=== PATIENT | male | born 1960 | race Caucasian/White ===

== ENCOUNTER 2017-05-31 23:56 | Emergency (ER) | payer OTHER ==
[2017-06-01 00:02] VITALS: BP 170/97; PULSE 68; RESP 18; TEMP 97.9; O2SAT 97
--- NOTE | 2017-06-01 00:23 | EDPHY ---
H & P Stated Complaint: finger injury Time Seen by Provider: 06/01/17 00:18 HPI/ROS: CHIEF COMPLAINT: Left little finger pain HISTORY OF PRESENT ILLNESS: The patient is a 56-year-old healthy man who fell while trying to hang a picture. He fell to the side and hit his hand on the counter. He states that his left little finger was dislocated it and he self relocated it. This happened just prior to arrival. He denies other injuries or complaints. REVIEW OF SYSTEMS: Constitutional: denies: chills, fever, recent illness, recent injury EENTM: denies: blurred vision, double vision, nose congestion Respiratory: denies: cough, shortness of breath Cardiac: denies: chest pain, irregular heart rate, lightheadedness, palpitations Gastrointestinal/Abdominal: denies: abdominal pain, diarrhea, nausea, vomiting, blood streaked stools Genitourinary: denies: dysuria, frequency, hematuria, pain Musculoskeletal: See HPI Skin: denies: lesions, rash, jaundice, bruising Neurological: denies: headache, numbness, paresthesia, tingling, dizziness, weakness Hematologic/Lymphatic: denies: blood clots, easy bleeding, easy bruising Immunologic/allergic: denies: HIV/AIDS, transplant EXAM: GENERAL: Well-appearing, well-nourished and in no acute distress. HEAD: Atraumatic, normocephalic. EYES: Pupils equal round and reactive to light, extraocular movements intact, sclera anicteric, conjunctiva are normal. ENT: TMs normal, nares patent, oropharynx clear without exudates. Moist mucous membranes. NECK: Normal range of motion, supple without lymphadenopathy or JVD. LUNGS: Breath sounds clear to auscultation bilaterally and equal. No wheezes rales or rhonchi. HEART: Regular rate and rhythm without murmurs, rubs or gallops. ABDOMEN: Soft, nontender, normoactive bowel sounds. No guarding, no rebound. No masses appreciated. BACK: No CVA tenderness, no spinal tenderness, step-offs or deformities EXTREMITIES: Swelling and bruising left little finger at PIP joint. Normal sensation distally. Painful but normal range of motion. NEUROLOGICAL: Cranial nerves II through XII grossly intact. Normal speech, normal gait. 5/5 strength, normal movement in all extremities, normal sensation PSYCH: Normal mood, normal affect. SKIN: Warm, dry, normal turgor, no visible rashes or lesions. Source: Patient Exam Limitations: No limitations - Personal History Current Tetanus/Diphtheria Vaccine: Yes - Medical/Surgical History Hx Asthma: No Hx Chronic Respiratory Disease: No Hx Diabetes: No Hx Cardiac Disease: No Hx Renal Disease: No Hx Cirrhosis: No Hx Alcoholism: No Hx HIV/AIDS: No Hx Splenectomy or Spleen Trauma: No Other PMH: hernia surgery - Family History Significant Family History: No pertinent family hx - Social History Smoking Status: Never smoked Alcohol Use: Sober Drug Use: None Constitutional: Initial Vital Signs Temperature (C) 36.6 C 06/01/17 00:00 Heart Rate 68 06/01/17 00:00 Respiratory Rate 18 06/01/17 00:00 Blood Pressure 170/97 H 06/01/17 00:00 O2 Sat (%) 97 06/01/17 00:00 O2 Delivery Mode Room Air Allergies/Adverse Reactions: No Known Allergies Allergy (Unverified 06/01/17 00:02) Home Medications: Medication Instructions Recorded NK [No Known Home Meds] 06/01/17 Medical Decision Making - Diagnostics Imaging: Discussed imaging studies w/ callisthenics instructor Radiologist ED Course/Re-evaluation: 12:40 a.m. we discussed the x-ray results. The patient's finger was dandre- taped and we discussed treatment and follow up with Hand surgery. He understands and agrees with this plan. He declines further treatment at this time. Differential Diagnosis: Partial list of the Differential diagnosis considered include but were not limited to; fracture, dislocation and although unlikely based on the history and physical exam, I also considered vascular injury, nerve injury. I discussed these differential diagnoses and the plan with the patient as well as the usual and expected course. The patient understands that the diagnosis is provisional and that in medicine we are not always correct and that further workup is often warranted. Usual and customary warnings were given. All of the patient's questions were answered. The patient was instructed to return to the emergency department should the symptoms at all worsen or return, otherwise to followup with the physician as we discussed. Departure - Departure Disposition: Home, Routine, Self-Care Clinical Impression: Dislocation of left little finger Qualifiers: Encounter type: initial encounter Qualified Code(s): S63.257A - Unspecified dislocation of left little finger, initial encounter Condition: Good Instructions: Finger Dislocation (ED) Referrals: PERLITA LEON [Other] - As per Instructions Clarissa Castaneda MD [Medical Doctor] - As per Instructions
== END 2017-06-01 00:56 | disposition home or self-care (01) ==
DX: S63.257A Unspecified dislocation of left little finger, initial encounter (principal); W01.198A Fall on same level from slipping, tripping and stumbling with subsequent striking against other object, initial encounter; Y93.89 Activity, other specified